=== PATIENT | female | born 1965 | race African-American/Black ===

== ENCOUNTER 2017-01-27 09:59 | Emergency (ER) | payer OTHER ==
[~2017-01-27] VITALS: Ht 165.1 cm; Wt 74.8 kg
[2017-01-27 10:03] VITALS: BP 160/88
--- NOTE | 2017-01-27 10:12 | NUR ---
PT AMBULATED TO BED 4.
[2017-01-27] MEDS ORDERED: [UNRECOGNIZED DRUG - CODE] PO (10:13)
--- NOTE | 2017-01-27 10:15 | NUR ---
Ariana pena in [facility] - 01/27/17 at 1015 by LEONORA Patient ambulated to bed 04.
--- NOTE | 2017-01-27 10:25 | NUR ---
Dr. Lundy evaluating patient at bedside.
--- NOTE | 2017-01-27 10:26 | NUR ---
PT PRESENTS TO ER W/C/O HEADACHE AND SARAH FOOT NUMBNESS. HX HTN. DENIES N/V/D; SKIN IS PINK/WARM/DRY; AAOX4 WITH EVEN AND STEADY GAIT; LUNGS CLEAR BL; HR EVEN AND REGULAR; PT DENIES ANY FEVER, CP, SOB, OR COUGH AT THIS TIME; PATIENT STATES PAIN OF 5/10 AT THIS TIME; VSS; PATIENT POSITIONED FOR COMFORT; HOB ELEVATED; BEDRAILS UP X2; BED DOWN. ER MD MADE AWARE OF PT STATUS.
--- NOTE | 2017-01-27 11:30 | NUR ---
PATIENT ELOPED FROM FACILITY. DISCHARGE INSTRUCTIONS NOT GIVEN TO PATIENT. DR. HERNANDEZ NOTIFIED.
[2017-01-27 11:54] VITALS: BP 144/92
--- NOTE | 2017-01-27 11:54 | NUR ---
Patient discharged with v/s stable. Written and verbal after care instructions given and explained. Patient verbalized understanding. Ambulatory with steady gait. All questions addressed prior to discharge. Advised to follow up with PMD. REFERRALS WITH PHONE NUMBERS PROVIDED
== END 2017-01-27 11:54 | disposition home or self-care (01) ==
LOC: MED 09:59
DX: M54.81 Occipital neuralgia (principal); F41.9 Anxiety disorder, unspecified; R20.2 Paresthesia of skin; I10 Essential (primary) hypertension; Z88.8 Allergy status to other drugs, medicaments and biological substances; Z88.1 Allergy status to other antibiotic agents
CPT/HCPCS: 99283